=== PATIENT | female | born 1955 | race African-American/Black ===

== ENCOUNTER 2024-09-24 10:16 | Outpatient (CLI) | payer MEDICARE, BC | END 2024-09-24 10:17 | disposition home or self-care (01) | LOC: BICMAMMO 10:16 | PROVIDERS: ATTEND Family Medicine | DX: Z12.31 Encounter for screening mammogram for malignant neoplasm of breast (principal); Z78.0 Asymptomatic menopausal state; M85.89 Other specified disorders of bone density and structure, multiple sites | CPT/HCPCS: 77063; 77067; 77080 ==